=== PATIENT | female | born 1965 | race Caucasian/White ===

== ENCOUNTER → 2016-09-16 | Outpatient (CLI) | payer OTHER ==
--- NOTE | 2016-09-16 13:07 | XR ---
Left ankle HISTORY: Trauma and pain 3 views of the left ankle There are ossific densities at the level of the medial and lateral malleolus. Soft tissue swelling is greater laterally. Alignment and bone mineralization are maintained. There is a small plantar calcan eal spur. Some spurring at the anterior tibiotalar joint with joint space loss is noted. IMPRESSION: Findings compatible with old trauma to the ankle. Difficult to exclude a superimposed mor e acute avulsion injury or chip fracture as described laterally. Some secondary osteoarthritic change is suspected.
== END ==
LOC: RADXRMAIN 12:44
PROVIDERS: ATTEND Emergency Medicine
DX: S93.402A Sprain of unspecified ligament of left ankle, initial encounter (principal)